=== PATIENT | male | born 1995 | race Caucasian/White ===

== ENCOUNTER 2018-12-21 03:34 | Outpatient (CLI) | payer OTHER | END 2018-12-21 03:35 | disposition critical access hospital (66) | LOC: EMS 03:34 | PROVIDERS: ATTEND Surgery | DX: R11.10 Vomiting, unspecified (principal); R19.7 Diarrhea, unspecified; R10.9 Unspecified abdominal pain | CPT/HCPCS: A0425; A0429 ==

== ENCOUNTER 2018-12-21 03:53 | Emergency (ER) | payer OTHER ==
[2018-12-21] MEDS ORDERED: SODIUM CHLORIDE 0.9% 1,000 ML IV ONE (04:10)
[2018-12-21] MEDS ORDERED: ONDANSETRON 4 MG/2 ML VIAL IM STA (04:10)
--- NOTE | 2018-12-21 04:39 | ED Physician Documentation ---
PD HPI NVD - Stated complaint Stated Complaint: N/V - Chief complaint Chief Complaint: Abd Pain - History obtained from History obtained from: Patient - History of Present Illness Timing - onset: Enter time (21:00), Today Timing - details: Abrupt onset Pain level max: 0 Pain level now: 0 Associated symptoms: No: Fever Worsened by: Eating Similar symptoms before: Has not had sx before Recently seen: Not recently seen - Additonal information Additional information: c/o n/v/watery diarrhea since 9 PM Review of Systems Constitutional: reports: Fatigue. denies: Fever, Chills, Sweats Cardiac: reports: Reviewed and negative Respiratory: reports: Reviewed and negative GI: reports: Nausea, Vomiting, Diarrhea. denies: Abdominal Pain, Hematemesis, Bloody / black stool : denies: Dysuria, Frequency PD PAST MEDICAL HISTORY - Past Medical History Past Medical History: No - Past Surgical History Past Surgical History: No - Present Medications Home Medications: Ambulatory Orders Medication Instructions Recorded Confirmed Diphenoxylate/Atropine [Lomotil] 1 each PO QID PRN #10 tablet 12/21/18 Promethazine [Phenergan] 25 mg PO Q6H PRN #10 tab 12/21/18 - Allergies Allergies/Adverse Reactions: Allergies Allergy/AdvReac Type Severity Reaction Status Date / Time No Known Drug Allergies Allergy Verified 12/21/18 04:22 - Living Situation Living Arrangement: reports: At home - Social History Does the pt smoke?: No PD ED PE NORMAL - Vitals Vital signs reviewed: Yes - General General: Alert and oriented X 3, No acute distress, Well developed/nourished - HEENT HEENT: Other (dry mucous membranes) - Neck Neck: Supple, no meningeal sign - Cardiac Cardiac: RRR, No murmur - Respiratory Respiratory: No respiratory distress, Clear bilaterally - Abdomen Abdomen: Soft, Non tender - Derm Derm: Normal color, Warm and dry - Extremities Extremities: No edema Results - Vitals Vitals: Oxygen O2 Source Room air - Labs Labs: Laboratory Tests 12/21/18 12/21/18 04:25 04:25 WBC 7.0 RBC 5.13 Hgb 14.9 Hct 45.5 MCV 88.7 MCH 29.0 MCHC 32.7 RDW 12.9 Plt Count 127 L MPV 10.7 Neut # (Auto) 6.4 Lymph # (Auto) 0.2 L Callahan # (Auto) 0.4 Eos # (Auto) 0.0 Baso # (Auto) 0.0 Absolute Nucleated RBC 0.00 Nucleated RBC % 0.0 Sodium 143 Potassium 4.3 Chloride 103 Carbon Dioxide 30 Anion Gap 10.0 BUN 25 H Creatinine 1.0 Estimated GFR (MDRD) 92 Glucose 125 H Calcium 9.9 Total Bilirubin 1.3 H AST 21 ALT 24 Alkaline Phosphatase 41 L Total Protein 7.9 Albumin 5.2 Globulin 2.7 Albumin/Globulin Ratio 1.9 PD MEDICAL DECISION MAKING - ED course Complexity details: reviewed results, re-evaluated patient, considered differential, d/w patient ED course: eventually improved after 3 liters NS, zofran , and phenergan Departure - Departure Disposition: 01 Home, Self Care Clinical Impression: Gastroenteritis Condition: Good Instructions: ED Gastroenteritis Viral Follow-Up: [facility] [Provider Group] Prescriptions: Diphenoxylate/Atropine [Lomotil] 1 each PO QID PRN #10 tablet PRN Reason: Diarrhea Promethazine [Phenergan] 25 mg PO Q6H PRN #10 tab PRN Reason: Nausea / Vomiting Forms: Activity restrictions Discharge Date/Time: 12/21/18 09:22
[2018-12-21 04:45] LABS: BASOPHILS % (AUTO) 0.4 %; EOSINOPHILS % (AUTO) 0.3 %; HGB - HEMOGLOBIN 14.9 g/dL (14.0-18.0); LYMPHOCYTES # (AUTO) 0.2 10^3/uL (1.5-3.5); LYMPHOCYTES % (AUTO) 2.6 %; MEAN CORPUSCULAR HGB CONC 32.7 g/dL (32.0-36.0); MEAN CORPUSCULAR VOLUME 88.7 fL (80.0-94.0); MEAN PLATELET VOLUME 10.7 fL (7.4-11.4); MONOCYTES # (AUTO) 0.4 10^3/uL (0.0-1.0); MONOCYTES % (AUTO) 5.3 %; NEUTROPHILS # (AUTO) 6.4 10^3/uL (1.5-6.6); NEUTROPHILS % (AUTO) 91.1 %; PLT - PLATELET COUNT 127 10^3/uL (130-450); RED BLOOD COUNT 5.13 10^6/uL (4.70-6.10); RED CELL DISTRIBUTION WIDTH 12.9 % (12.0-15.0)
[2018-12-21] MEDS ORDERED: SODIUM CHLORIDE 0.9% 1,000 ML IV STA ×2 (04:54→07:27)
[2018-12-21 04:55] LABS: ALBUMIN 5.2 g/dL (3.2-5.5); ALBUMIN/GLOBULIN RATIO 1.9 (1.0-2.2); BILIRUBIN,TOTAL 1.3 mg/dL (0.2-1.0); CALCIUM 9.9 mg/dL (8.5-10.3); TOTAL PROTEIN 7.9 g/dL (6.7-8.2)
[2018-12-21] MEDS ORDERED: IOVERSOL 320 100 ML VIAL IVP ONE ×2 (05:13→05:24)
--- NOTE | 2018-12-21 05:37 | CT Report ---
Reason: RLQ pain, tenderness Procedure Date: 12/21/2018 Accession Number: [id number] / [id number] Procedure: CT - Abdomen/Pelvis W CPT Code: FULL RESULT: EXAM: CT ABDOMEN AND PELVIS EXAM DATE: 12/21/2018 05:22 AM CLINICAL HISTORY: Right lower quadrant pain, tenderness. COMPARISONS: None. TECHNIQUE: Routine helical CT imaging was performed through the abdomen and pelvis. IV contrast: Yes. Enteric contrast: No. Reconstructions: Coronal and sagittal. In accordance with CT protocol optimization, one or more of the following dose reduction techniques were utilized for this exam: automated exposure control, adjustment of mA and/or KV based on patient size, or use of iterative reconstructive technique. FINDINGS: Lung Bases: Unremarkable. Liver: Unremarkable. No suspicious masses. Gallbladder/Bile Ducts: Unremarkable. Spleen: Unremarkable. Pancreas: Unremarkable. Adrenal Glands: Unremarkable. Kidneys: Unremarkable. No suspicious masses or hydronephrosis. Peritoneal Cavity/Bowel: No bowel obstruction or inflammatory process seen. No free air or significant free fluid. No masses or adenopathy. The appendix is not seen but there is no evidence of appendicitis. No excessive stool burden. Pelvic Organs: Bladder and prostate appear unremarkable. Vasculature: No aneurysms or other significant abnormality. Bones: No significant abnormality. Other: None. IMPRESSION: No acute inflammatory or obstructive process seen in the abdomen or pelvis. The appendix is not seen but there are no secondary signs of appendicitis. RADIA
[2018-12-21] MEDS ORDERED: ONDANSETRON 4 MG/2 ML VIAL IVP STA (06:32)
[2018-12-21] MEDS ORDERED: PROMETHAZINE INJ 25 MG in SODIUM CHLORIDE 0.9% 50 ML IV STA (07:27)
[2018-12-21 09:07] VITALS: BP 101/64
== END 2018-12-21 09:22 | disposition home or self-care (01) ==
LOC: ED 03:53
DX: K52.9 Noninfective gastroenteritis and colitis, unspecified (principal)
CPT/HCPCS: 36415; 74177; 80053; 85025; 96361; 96365; 96372; 96375; 99284; J7040; Q9967

== ENCOUNTER 2019-07-31 23:56 | Outpatient (CLI) | payer OTHER | END 2019-07-31 23:57 | disposition critical access hospital (66) | LOC: EMS 23:56 | PROVIDERS: ATTEND Surgery | DX: R51 Headache (principal); R55 Syncope and collapse; W18.39XA Other fall on same level, initial encounter; Y92.009 Unspecified place in unspecified non-institutional (private) residence as the place of occurrence of the external cause | CPT/HCPCS: A0425; A0429 ==

== ENCOUNTER 2019-08-01 00:19 | Emergency (ER) | payer OTHER ==
[2019-08-01 00:45] LABS: BASOPHILS % (AUTO) 0.3 %; EOSINOPHILS # (AUTO) 0.1 10^3/uL (0.0-0.7); EOSINOPHILS % (AUTO) 2.5 %; HGB - HEMOGLOBIN 14.8 g/dL (14.0-18.0); LYMPHOCYTES # (AUTO) 1.2 10^3/uL (1.5-3.5); MEAN CORPUSCULAR HEMOGLOBIN 30.4 pg (27.0-31.0); MEAN CORPUSCULAR HGB CONC 32.8 g/dL (32.0-36.0); MEAN CORPUSCULAR VOLUME 92.6 fL (80.0-94.0); MEAN PLATELET VOLUME 9.6 fL (7.4-11.4); MONOCYTES # (AUTO) 0.2 10^3/uL (0.0-1.0); NEUTROPHILS # (AUTO) 2.5 10^3/uL (1.5-6.6); NEUTROPHILS % (AUTO) 61.7 %; PLT - PLATELET COUNT 147 10^3/uL (130-450); RED BLOOD COUNT 4.87 10^6/uL (4.70-6.10); RED CELL DISTRIBUTION WIDTH 13.3 % (12.0-15.0)
[2019-08-01 00:57] LABS: ALBUMIN 4.9 g/dL (3.2-5.5); ALBUMIN/GLOBULIN RATIO 1.9 (1.0-2.2); BILIRUBIN,TOTAL 0.7 mg/dL (0.2-1.0); CALCIUM 9.1 mg/dL (8.5-10.3); CREATININE 0.8 mg/dL (0.6-1.2); TOTAL PROTEIN 7.5 g/dL (6.7-8.2)
--- NOTE | 2019-08-01 01:10 | CT Report ---
Reason: head injury syncope Procedure Date: 08/01/2019 Accession Number: [id number] / [id number] Procedure: CT - HEAD WO CPT Code: Final Report FULL RESULT: EXAM: CT HEAD EXAM DATE: 08/01/2019 12:55 AM. CLINICAL HISTORY: Head injury, syncope. Headache. COMPARISON: None. TECHNIQUE: Multiaxial CT images were obtained from the foramen magnum to the vertex. Reformats: Sagittal and coronal. IV contrast: None. In accordance with CT protocol optimization, one or more of the following dose reduction techniques were utilized for this exam: automated exposure control, adjustment of mA and/or KV based on patient size, or use of iterative reconstructive technique. FINDINGS: Parenchyma: No intraparenchymal hemorrhage. No evidence of mass, midline shift, or CT findings of infarction. Byrd-white differentiation is distinct. Extraaxial Spaces: Normal for age. No subdural or epidural collections identified. Ventricles: Normal in size and position. Sinuses and Orbits: Imaged paranasal sinuses, orbits, and mastoids show no significant abnormality. Bones: No evidence of fracture or calvarial defect. Other: None. IMPRESSION: No intracranial hemorrhage, skull fracture, or other acute intracranial abnormality. RADIA
--- NOTE | 2019-08-01 01:25 | ED Physician Documentation ---
PD HPI HEAD INJURY - Stated complaint Stated Complaint: HEAD INJ, ETOH - Chief complaint Chief Complaint: Trauma Hd/Nk - History obtained from History obtained from: Patient, EMS - History of Present Illness Mechanism of head injury: Fell Where head injury occurred: Home Timing - onset: Today Location of injury: Back Quality of pain: Pain Associated symptoms: LOC, AMS Symptoms improve with: Rest Symptoms worsen with: Palpation, Movement Contributing factors: Intoxicated. No: Anticoagulated Similar symptoms before: Has not had sx before Recently seen: Not recently seen - Additional information Additional information: 24-year-old male indicates he has been drinking and at home he had an episode where he leaned back and fell straight back onto the back of his head. He had momentary loss of consciousness and 911 was called. The patient is awake and alert denies any pain in his neck does state that he has a headache and feels that he is intoxicated. He otherwise has not been ill and feels well. Review of Systems Constitutional: denies: Fever, Chills, Myalgias, Fatigue Eyes: denies: Decreased vision Ears: denies: Ear pain Nose: denies: Rhinorrhea / runny nose, Congestion Throat: denies: Sore throat Cardiac: denies: Chest pain / pressure, Palpitations Respiratory: denies: Dyspnea, Cough GI: denies: Abdominal Pain, Nausea, Vomiting : denies: Dysuria, Frequency Skin: denies: Rash Musculoskeletal: denies: Neck pain, Back pain, Extremity pain Neurologic: reports: Headache, Head injury, LOC. denies: Generalized weakness, Focal weakness, Numbness, Difficulty speaking, Near syncope PD PAST MEDICAL HISTORY - Past Surgical History Past Surgical History: No - Allergies Allergies/Adverse Reactions: Allergies Allergy/AdvReac Type Severity Reaction Status Date / Time No Known Drug Allergies Allergy Verified 08/01/19 00:32 - Social History Does the pt smoke?: No PD ED PE NORMAL - Vitals Vital signs reviewed: Yes (Hypertensive mild) - General General: Alert and oriented X 3, No acute distress, Well developed/nourished - HEENT HEENT: PERRL, EOMI, Other (Tenderness to the occiput without crepitance or step- off) - Neck Neck: Supple, no meningeal sign, No bony TTP - Cardiac Cardiac: RRR, No murmur - Respiratory Respiratory: No respiratory distress, Clear bilaterally - Abdomen Abdomen: Soft, Non tender - Back Back: No CVA TTP, No spinal TTP - Derm Derm: Normal color, Warm and dry, No rash - Extremities Extremities: No deformity, No edema - Neuro Neuro: Alert and oriented X 3, stave jointer 2-12 intact, No motor deficit, No sensory deficit, Normal speech Eye Opening: Spontaneous Motor: Obeys Commands Verbal: Oriented GCS Score: 15 - Psych Psych: Normal mood, Normal affect Results - Vitals Vitals: Vital Signs - 24 hr 08/01/19 08/01/19 00:23 02:09 Temperature 36.5 C Heart Rate 92 78 Respiratory 18 14 Rate Blood Pressure 129/82 H 118/69 O2 Saturation 99 95 Oxygen O2 Source Room air - Labs Labs: Laboratory Tests 08/01/19 08/01/19 00:39 00:39 WBC 4.0 L RBC 4.87 Hgb 14.8 Hct 45.1 MCV 92.6 MCH 30.4 MCHC 32.8 RDW 13.3 Plt Count 147 MPV 9.6 Neut # (Auto) 2.5 Lymph # (Auto) 1.2 L Jay # (Auto) 0.2 Eos # (Auto) 0.1 Baso # (Auto) 0.0 Absolute Nucleated RBC 0.00 Nucleated RBC % 0.0 Sodium 140 Potassium 3.6 Chloride 102 Carbon Dioxide 26 Anion Gap 12.0 BUN 11 Creatinine 0.8 Estimated GFR (MDRD) 118 Glucose 81 Calcium 9.1 Total Bilirubin 0.7 AST 22 ALT 17 Alkaline Phosphatase 48 Total Protein 7.5 Albumin 4.9 Globulin 2.6 Albumin/Globulin Ratio 1.9 Lipase 34 Ethyl Alcohol 169.0 - Rads (name of study) CT head w/o Radiology: Prelim report reviewed (Impression: No intracranial hemorrhage, skull fracture, or other acute intracranial abnormality.), EMP read indepedently, See rad report PD MEDICAL DECISION MAKING - ED course Complexity details: reviewed old records, reviewed results, re-evaluated patient, considered differential, d/w patient ED course: 24-year-old male rise to the emergency department with a head injury and loss of consciousness he is found to be intoxicated and he now has normal mental status and a normal examination. CT of the head is without evidence of intracranial hemorrhage. He does have support to pick him up. Departure - Departure Disposition: 01 Home, Self Care Clinical Impression: Concussion Qualifiers: Encounter type: initial encounter Loss of consciousness presence/duration: with LOC of 30 min or less Qualified Code(s): S06.0X1A - Concussion with loss of consciousness of 30 minutes or less, initial encounter Alcohol intoxication Qualifiers: Complication of substance-induced condition: with delirium Qualified Code(s): F10.921 - Alcohol use, unspecified with intoxication delirium Condition: Stable Instructions: ED Concussion, ED Alcohol Intoxication Follow-Up: [facility] [Provider Group] Discharge Date/Time: 08/01/19 02:10
[2019-08-01 02:10] VITALS: BP 118/69
== END 2019-08-01 02:10 | disposition home or self-care (01) ==
LOC: EDUNIT# → ED 00:19
DX: S06.0X1A Concussion with loss of consciousness of 30 minutes or less, initial encounter (principal); W18.30XA Fall on same level, unspecified, initial encounter; Y92.009 Unspecified place in unspecified non-institutional (private) residence as the place of occurrence of the external cause; F10.121 Alcohol abuse with intoxication delirium
CPT/HCPCS: 36415; 70450; 80053; 80320; 83690; 85025; 99284

== ENCOUNTER 2021-05-22 11:35 | Emergency (ER) | payer OTHER ==
[2021-05-22 11:42] VITALS: BP 141/84
--- NOTE | 2021-05-22 12:03 | ED Physician Documentation ---
PD HPI NECK PAIN - Stated complaint Stated Complaint: NECK PX - Chief complaint Chief Complaint: Trauma Hd/Nk - History obtained from History obtained from: Patient - History of Present Illness Timing - onset: How many days ago (2) Timing - duration: Days (2) Timing - details: Abrupt onset, Still present Location: Lower, Right, Left Quality: Pain, Spasm Associated symptoms: No: Fever, Weakness, Numbness Improves with: Rest. No: Meds (took ibuprofen yesterday without improvement) Worsened by: Movement, Lifting Contributing factors: Trauma (he was wrestling competitively and the opponent twisted patient's head and also struck/pressured near base of neck with onset of pain lower neck. He was able to keep wrestling but was hurting more later and next day. Still hurting today and has weakness/spasm for lifting head. No weakness of arms.) Similar symptoms before: Has not had sx before Recently seen: Not recently seen Review of Systems Constitutional: denies: Fever, Chills Nose: denies: Rhinorrhea / runny nose, Congestion Throat: denies: Sore throat Respiratory: denies: Cough Musculoskeletal: reports: Neck pain, Other (pain in both shoulders as well.). denies: Back pain Neurologic: denies: Focal weakness, Numbness, Altered mental status, Headache, Head injury, LOC PD PAST MEDICAL HISTORY - Past Medical History Cardiovascular: None Respiratory: None Endocrine/Autoimmune: None Musculoskeletal: Other (fracture distal clavicle 2 months ago, with normal use but still hurts and tender at times AC area. ) - Past Surgical History Past Surgical History: No - Present Medications Home Medications: Ambulatory Orders Medication Instructions Recorded Confirmed HYDROcod/ACETAM 5/325 [[place] 5/325] 1 ea PO Q6H PRN #15 tablet 05/22/21 Ibuprofen [Motrin] 600 mg PO TID PRN #25 tab 05/22/21 methocarbamoL [Robaxin] 500 mg PO Q6H PRN #30 tablet 05/22/21 - Allergies Allergies/Adverse Reactions: Allergies Allergy/AdvReac Type Severity Reaction Status Date / Time No Known Drug Allergies Allergy Verified 05/22/21 11:42 - Social History Does the pt smoke?: No PD ED PE NORMAL - Vitals Vital signs reviewed: Yes - General General: Alert and oriented X 3, Well developed/nourished, Other (appears in pain with neck movements, holding head guardedly. ) - Neck Neck: Supple, no meningeal sign, No adenopathy, Other (tender in lower neck paracervical muscles and toward the suprascapular shoulders. Some tender at left distal clavicle.) Results - Vitals Vitals: Vital Signs - 24 hr 05/22/21 11:40 Temperature 35.9 C L Heart Rate 68 Respiratory 16 Rate Blood Pressure 141/84 H O2 Saturation 100 Oxygen O2 Source Room air - Rads (name of study) cervical spine CT Radiology: Prelim report reviewed (no acute abnormality.), See rad report shoulder bilat Radiology: Prelim report reviewed (right normal. Left distal clavicile fracture minimally displaced.), EMP read contemporaneously (left distal clavicle with fracture but some callus formation c/w healing prior fracture. ), See rad report PD MEDICAL DECISION MAKING - ED course Complexity details: reviewed results (no fracture nor acute abnormality. No neuro symptoms to suggest cord contusion or such. I do not feel MRI needed. ), considered differential, d/w patient Departure - Departure Disposition: 01 Home, Self Care Clinical Impression: Acute cervical myofascial strain Qualifiers: Encounter type: initial encounter Qualified Code(s): S16.1XXA - Strain of muscle, fascia and tendon at neck level, initial encounter Muscle strain of scapular region Qualifiers: Encounter type: initial encounter Laterality: left Qualified Code(s): S46.912A - Strain of unspecified muscle, fascia and tendon at shoulder and upper arm level, left arm, initial encounter Condition: Stable Record reviewed to determine appropriate education?: Yes Instructions: ED Sprain Strain Neck Follow-Up: [facility] [Provider Group] Prescriptions: Ibuprofen [Motrin] 600 mg PO TID PRN #25 tab PRN Reason: Pain HYDROcod/ACETAM 5/325 [[place] 5/325] 1 ea PO Q6H PRN #15 tablet PRN Reason: Pain methocarbamoL [Robaxin] 500 mg PO Q6H PRN #30 tablet PRN Reason: Spasms Comments: CT of your neck does not show any acute structural abnormality. Presume injury of the muscles and ligaments with therefore pain on motion and weakness for movement. Your left collarbone has not fully healed up but does have a good callus formation and should continue to heal okay. Activity as tolerated. Use anti-inflammatory such as ibuprofen 3 times a day with food for the next week. Add Tylenol if needed for pain or hydrocodone if needed for worse pain. You could also add methocarbamol muscle relaxant to help with stiffness and spasm. Heat gentle range of motion massage are all good for the neck. Follow-up with your primary care with also consideration of physical therapy if needed. Off work for couple of days and then light duty for another 5 or 6 days at least in progress activity as tolerated. This may take several weeks for good healing. Recheck if not improved well over the next several days to week. I transmitted your prescriptions to [facility] pharmacy in [place]. I am prescribing a short course of narcotic pain medication for you. These are potentially dangerous and addictive medications that should be used carefully. These medications may constipate you. Take an [id number] stool softener such as docusate twice daily with plenty of water while taking these medications. If you go 24 hours without a bowel movement, take [id number] MiraLAX, per package instructions. Do not drink or drive while taking these medications. If you received narcotic or sedating medications while in the emergency department do not drive for 24 hours. Store this medication in a safe, secure place and out of reach of children. It is a violation of federal law to give or sell this medication to another person or to use in a manner other than prescribed. The ED will not refill narcotic prescriptions, including prescriptions lost or stolen. You can dispose of unwanted medications at the [facility]'s office or at several pharmacies such as [facility] Forms: Activity restrictions Discharge Date/Time: 05/22/21 14:18
[2021-05-22] MEDS ORDERED: ACETAMINOPHEN 325 MG TABLET PO STA (12:33)
[2021-05-22] MEDS ORDERED: IBUPROFEN 600 MG TABLET PO STA (12:33)
--- NOTE | 2021-05-22 13:04 | XRAY Report ---
PROCEDURE: Shoulder 3 View BILAT INDICATIONS: shoulder/neck pain since wrestling 4 days ago TECHNIQUE: 3 views of the bilateral shoulders were acquired. COMPARISON: None. FINDINGS: BONES: Right: No acute, displaced fracture. The joint spaces are maintained. Left: Cortical irregularity of the distal clavicle, compatible with minimally displaced fracture. The joint spaces are maintained. SOFT TISSUES: Edema about the left clavicle. No appreciable pneumothorax. IMPRESSION: 1.Minimal displaced fracture of the left distal clavicle. Reviewed by: Burt Wilkins MD on 05/22/2021 1:02 PM [facility] Approved by: Burt Wilkins MD on 05/22/2021 1:02 PM PST Station ID: [id number]
--- NOTE | 2021-05-22 13:12 | CT Report ---
PROCEDURE: CERVICAL SPINE WO INDICATIONS: neck injury wrestling 4 days ago TECHNIQUE: Noncontrast 3 mm thick sections acquired from the skull base to the T4 level. Sagittal and coronal r eformats were then constructed. For radiation dose reduction, the following was used: automated exp osure control, adjustment of mA and/or kV according to patient size. COMPARISON: None. FINDINGS: Image quality: Excellent. Bones: No acute fractures or dislocations. Mild straightening of the cervical lordosis may be second dilcia to positioning or muscle spasm. Visualized superior ribs are intact. No significant arthritic ch anges Soft tissues: Prevertebral soft tissues are normal in thickness. No paravertebral hematomas. No ap ical pneumothoraces. IMPRESSION: No acute cervical spine fracture or subluxation. Mild straightening of the normal cervical lordosis m ay be secondary to positioning or muscle spasm. Reviewed by: Maximino Cornejo MD on 05/22/2021 1:10 PM PST Approved by: Maximino Cornejo MD on 05/22/2021 1:10 PM PST Station ID: [id number]
== END 2021-05-22 14:18 | disposition home or self-care (01) ==
LOC: ED 11:35
DX: S16.1XXA Strain of muscle, fascia and tendon at neck level, initial encounter (principal); S46.912A Strain of unspecified muscle, fascia and tendon at shoulder and upper arm level, left arm, initial encounter; W50.2XXA Accidental twist by another person, initial encounter; Y93.72 Activity, wrestling
CPT/HCPCS: 72125; 73030; 99282; 99283; A9270

== ENCOUNTER 2021-09-24 22:06 | Emergency (ER) | payer OTHER ==
[2021-09-24] MEDS ORDERED: cephALEXin 250 MG CAPSULE PO STA (22:56)
[2021-09-24] MEDS ORDERED: ACETAMINOPHEN 325 MG TABLET PO STA (22:57)
--- NOTE | 2021-09-24 22:58 | ED Physician Documentation ---
History of Present Illness - Stated complaint Stated Complaint: LUMP ON HEAD - Chief complaint Chief Complaint: Heent - History obtained from History obtained from: Patient - Additonal information Additional information: Patient is a 26-year-old male with a history of psoriasis presenting for evaluation of discomfort and painful lump to the right posterior scalp/neck Area that has been present for 2 weeks but worsening today. Patient reports feeling a small bump that there a few weeks ago but that it has become increasing in size in that area feels tender. He does have psoriasis.He denies fever, neck stiffness, chest pain or difficulty breathing. Review of Systems Constitutional: denies: Fever Nose: denies: Congestion Cardiac: denies: Chest pain / pressure Respiratory: denies: Dyspnea, Cough GI: denies: Abdominal Pain, Vomiting Skin: reports: Rash Musculoskeletal: denies: Back pain Neurologic: denies: Headache PD PAST MEDICAL HISTORY - Past Medical History Cardiovascular: None Respiratory: None Endocrine/Autoimmune: None Musculoskeletal: Other (fracture distal clavicle 2 months ago, with normal use but still hurts and tender at times AC area. ) - Past Surgical History Past Surgical History: No - Present Medications Home Medications: Ambulatory Orders Medication Instructions Recorded Confirmed cephALEXin [Keflex] 500 mg PO Q6H #28 cap 09/24/21 - Allergies Allergies/Adverse Reactions: Allergies Allergy/AdvReac Type Severity Reaction Status Date / Time No Known Drug Allergies Allergy Verified 09/24/21 22:19 - Social History Does the pt smoke?: No PD ED PE NORMAL - General General: Alert and oriented X 3, No acute distress, Well developed/nourished - HEENT HEENT: Atraumatic - Neck Neck: Supple, no meningeal sign, No bony TTP - Respiratory Respiratory: No respiratory distress - Derm Derm: Other (Psoriatic rash to bilateral eyebrow areas; scabbing/erythema/open areas to right posterior scalp near hairline, no vesicles/blisters or palpabe fluctuance). No: No rash PD ED PE EXPANDED - HEENT HEENT Visual: 1 - rash Results - Vitals Vitals: Vital Signs - 24 hr 06/27/22 06/27/22 22:16 23:06 Temperature 36.5 C 36.5 C Heart Rate 65 62 Respiratory 18 18 Rate Blood Pressure 118/65 120/62 O2 Saturation 98 99 Oxygen O2 Source Room air PD MEDICAL DECISION MAKING - ED course ED course: Patient with irritation to right posterior scalp. No vesicles to suggest Herpes. Rash may have started as psoriasis as patient does have extensive psoriasis elsewhere. However I have concerns that there is no superimposed infection as there are open areas from where scabs have been picked off Which appear very chencho thematous and inflamed. No abscess.We will start patient on Keflex For cellulitis. He is aware of need for close follow-up with his PCP as well as return precautions. Departure - Departure Disposition: 01 Home, Self Care Clinical Impression: Cellulitis of scalp Condition: Stable Instructions: ED Infec Skin Cellulitis Prescriptions: cephALEXin [Keflex] 500 mg PO Q6H #28 cap Comments: You were evaluated for Pain to the back scalp area. On exam I saw a rash of scabbed areas, some open wounds and redness. I did not see an abscess that requires drainage. I also did not see any vesicles or blisters to suggest shingles. It may have started from psoriasis but I am concerned that it has now become infected. I will start you on an antibiotic called Keflex. I will send a prescription for this antibiotic to [facility] in [place]. If the rash does not appear to be improving over the course of the next several days, please [place] return to the emergency department. Discharge Date/Time: 09/24/21 23:06
[2021-09-24 23:07] VITALS: BP 120/62
== END 2021-09-24 23:06 | disposition home or self-care (01) ==
LOC: ED 22:06
DX: L03.811 Cellulitis of head [any part, except face] (principal)
CPT/HCPCS: 99282; 99283; A9270